=== PATIENT | female | born 1980 | race Caucasian/White ===

== ENCOUNTER 2019-06-07 16:05 | Emergency (ER) | payer MEDICAID ==
[~2019-06-07] VITALS: Ht 157.5 cm; Wt 109.1 kg
[2019-06-07] MEDS ORDERED: IV NORMAL SALINE 1000ML BAG 1,000 ML IV ONE (16:45)
[2019-06-07] MEDS ORDERED: fentaNYL PF VIAL 100 MCG/2 ML VIAL IV ONE (16:45)
--- NOTE | 2019-06-07 16:53 | PHYS DOC ---
Past Medical History Past Medical History: Anxiety, Bipolar, Depression, Fibromyalgia, Pancreatitis Past Surgical History: Cholecystectomy, , Other Additional Past Surgical Histo: UTERINE ABLATION Smoking Status: Never Smoker Alcohol Use: Rarely Adult General Chief Complaint Chief Complaint: RIB PAIN HPI HPI Patient is a 38 year old female who presents with L sided rib pain that started yesterday. The patient states the pain has been hurting when she moves around, however the patient's been taking 2 different muscle relaxants at home and neither is improved her pain. The patient pain is located in the left upper quadrant to left flank of her stomach. It radiates up into the left side of her chest. The patient states that nothing makes it better. The patient states she's also been coughing. Denies fevers. Denies trauma. She does state that she has a history of pancreatitis. Review of Systems Review of Systems Constitutional: Denies fever or chills [] Eyes: Denies change in visual acuity, redness, or eye pain [] HENT: Denies nasal congestion or sore throat [] Respiratory: Reports cough. Cardiovascular: No additional information not addressed in HPI [] GI: Reports L abdominal pain, Denies nausea, vomiting, bloody stools or diarrhea [] : Denies dysuria or hematuria [] Musculoskeletal: Denies back pain or joint pain [] Integument: Denies rash or skin lesions [] Neurologic: Denies headache, focal weakness or sensory changes [] Endocrine: Denies polyuria or polydipsia [] Complete systems were reviewed and found to be within normal limits, except as documented in this note. Current Medications Current Medications Current Medications Medications (Trade) Dose Ordered Sig/Paige Start Time Stop Time Status Last Admin Dose Admin Fentanyl Citrate (Fentanyl 2ml Vial) 50 mcg 1X ONCE 06/07/19 16:45 06/07/19 16:47 DC 06/07/19 17:11 50 MCG Morphine Sulfate (Morphine Sulfate) 5 mg 1X STAT 06/07/19 17:50 06/07/19 17:52 DC 06/07/19 18:00 5 MG Ondansetron HCl (Zofran) 4 mg 1X ONCE 06/07/19 18:00 06/07/19 18:01 DC 06/07/19 18:00 4 MG Sodium Chloride 1,000 ml @ 1,000 mls/hr 1X ONCE 06/07/19 16:45 06/07/19 17:44 DC 06/07/19 17:10 1,000 MLS/HR Allergies Allergies Allergies Coded Allergies Type Severity Reaction Last Updated Verified No Known Drug Allergies 06/07/19 No Physical Exam Physical Exam Constitutional: Well developed, well nourished, no acute distress, non-toxic appearance. [] HENT: Normocephalic, atraumatic, bilateral external ears normal, oropharynx mo ist, no oral exudates, nose normal. [] Eyes: PERRLA, EOMI, conjunctiva normal, no discharge. [] Neck: Normal range of motion, no tenderness, supple, no stridor. [] Cardiovascular:Heart rate regular rhythm, no murmur [] Lungs & Thorax: Bilateral breath sounds diminished bilaterally. Abdomen: Bowel sounds normal, soft, L flank tenderness and LUQ tenderness on palpation, no masses, no pulsatile masses. [] Skin: Warm, dry, no erythema, no rash. [] Back: + L CVA tenderness Extremities: No tenderness, no cyanosis, no clubbing, ROM intact, no edema. [] Neurologic: Alert and oriented X 3, normal motor function, normal sensory function, no focal deficits noted. [] Psychologic: Affect normal, judgement normal, mood normal. [] Current Patient Data Vital Signs Vital Signs Date Time Temp Pulse Resp B/P (MAP) Pulse Ox O2 Delivery O2 Flow Rate FiO2 06/07/19 18:06 82 18 135/72 (93) 97 Room Air 06/07/19 16:30 98.5 98.5 Lab Values Laboratory Tests Test 06/07/19 16:54 06/07/19 16:55 06/07/19 17:05 Urine Collection Type Void Urine Color Yellow Urine Clarity Turbid Urine pH 7.5 Urine Specific [place] 1.020 Urine Protein Negative mg/dL (NEG-TRACE) Urine Glucose (UA) Negative mg/dL (NEG) Urine Ketones (Stick) Negative mg/dL (NEG) Urine Blood Negative (NEG) Urine Nitrite Negative (NEG) Urine Bilirubin Negative (NEG) Urine Urobilinogen Dipstick 0.2 mg/dL (0.2 mg/dL) Urine Leukocyte Esterase Moderate (NEG) Urine RBC 0 /HPF (0-2) Urine WBC 0 /HPF (0-4) Urine Squamous Epithelial Cells Mod /LPF Urine Amorphous Sediment Present /HPF Urine Bacteria Few /HPF (0-FEW) POC Urine HCG, Qualitative Hcg negative (Negative) White Blood Count 10.9 x10^3/uL (4.0-11.0) Red Blood Count 4.54 x10^6/uL (3.50-5.40) Hemoglobin 14.0 g/dL (12.0-15.5) Hematocrit 40.5 % (36.0-47.0) Mean Corpuscular Volume 89 fL (79-100) Mean Corpuscular Hemoglobin 31 pg (25-35) Mean Corpuscular Hemoglobin Concent 35 g/dL (31-37) Red Cell Distribution Width 13.1 % (11.5-14.5) Platelet Count 375 x10^3/uL (140-400) Neutrophils (%) (Auto) 60 % (31-73) Lymphocytes (%) (Auto) 34 % (24-48) Monocytes (%) (Auto) 6 % (0-9) Eosinophils (%) (Auto) 0 % (0-3) Basophils (%) (Auto) 1 % (0-3) Neutrophils # (Auto) 6.5 x10^3/uL (1.8-7.7) Lymphocytes # (Auto) 3.6 x10^3/uL (1.0-4.8) Monocytes # (Auto) 0.6 x10^3/uL (0.0-1.1) Eosinophils # (Auto) 0.0 x10^3/uL (0.0-0.7) Basophils # (Auto) 0.1 x10^3/uL (0.0-0.2) D-Dimer (Brenda) 0.35 ug/mlFEU (0.00-0.50) Sodium Level 142 mmol/L (136-145) Potassium Level 3.5 mmol/L (3.5-5.1) Chloride Level 106 mmol/L (98-107) Carbon Dioxide Level 25 mmol/L (21-32) Anion Gap 11 (6-14) Blood Urea Nitrogen 6 mg/dL (7-20) L Creatinine 0.9 mg/dL (0.6-1.0) Estimated GFR (Cockcroft-Gault) 69.3 BUN/Creatinine Ratio 7 (6-20) Glucose Level 109 mg/dL (70-99) H Calcium Level 9.3 mg/dL (8.5-10.1) Total Bilirubin 0.5 mg/dL (0.2-1.0) Aspartate Amino Transferase (AST) 14 U/L (15-37) L Alanine Aminotransferase (ALT) 20 U/L (14-59) Alkaline Phosphatase 70 U/L (46-116) Troponin I Quantitative < 0.017 ng/mL (0.000-0.055) Total Protein 7.5 g/dL (6.4-8.2) Albumin 3.5 g/dL (3.4-5.0) Albumin/Globulin Ratio 0.9 (1.0-1.7) L Lipase 176 U/L (73-393) Procalcitonin < 0.10 ng/mL (0.00-0.10) Heterophil Agglutinins Negative (NEGATIVE) Laboratory Tests 06/07/19 17:05 Laboratory Tests 06/07/19 17:05 EKG EKG [] Radiology/Procedures Radiology/Procedures [place] [id number] IMAGING REPORT Signed PATIENT: MOHIT COOK: [id number] : 1980 LOCATION: ER AGE: 38 SEX: F EXAM STATUS: REG ER ORD. PHYSICIAN: NICOLAS AUGUSTE APRN REASON: CP, cough PROCEDURE: CHEST PA & LATERAL EXAM: CHEST 2 VIEWS. HISTORY: Chest pain, cough. COMPARISON: None. FINDINGS: Frontal and lateral views of the chest are obtained. There are no confluent infiltrates. There is no pneumothorax or pleural effusion. The heart is not enlarged. IMPRESSION: 1. No confluent infiltrates. Electronically signed by: Mercy Rossi MD (06/07/2019 5:42 PM) [id number] DICTATED and SIGNED BY: AUGUSTA ROSSI MD DATE: 06/07/19 [id number] [place], [place] [id number] IMAGING REPORT Signed PATIENT: MOHIT COOK: [id number] : 1980 LOCATION: ER AGE: 38 SEX: F EXAM STATUS: REG ER ORD. PHYSICIAN: NICOLAS AUGUSTE APRN REASON: CP, cough PROCEDURE: CHEST PA & LATERAL EXAM: CHEST 2 VIEWS. HISTORY: Chest pain, cough. COMPARISON: None. FINDINGS: Frontal and lateral views of the chest are obtained. There are no confluent infiltrates. There is no pneumothorax or pleural effusion. The heart is not enlarged. IMPRESSION: 1. No confluent infiltrates. Electronically signed by: Mercy Rossi MD (06/07/2019 5:42 PM) [id number] DICTATED and SIGNED BY: AUGUSTA ROSSI MD DATE: 06/07/191741 [][facility] [address] [place] [address] IMAGING REPORT Signed PATIENT: MOHIT COOK LACCOUNT: [id number] : 1980 LOCATION: ER AGE: 38 SEX: F EXAM STATUS: REG ER ORD. PHYSICIAN: NICOLAS AUGUSTE APRN REASON: Left sided flank pain PROCEDURE: CT ABDOMEN PELVIS WO CONTRAST CT ABDOMEN PELVIS WO CONTRAST Indication: Left-sided flank pain Exposure: One or more of the following individualized dose reduction techniques were utilized for this examination: 1. Automated exposure control 2. Adjustment of the mA and/or kV according to patient size 3. Use of iterative reconstruction technique. Comparison: None are available. Technique: No intravenous contrast given. No oral contrast per request. Findings: Evaluation of solid viscera, bowel and vasculature is compromised by the noncontrast technique. Lung bases are clear. Liver unremarkable. Spleen unremarkable. Pancreas appears unremarkable. No evidence of adrenal mass. Tiny nonobstructive calculus in the lower pole the right kidney and upper pole left kidney. No hydronephrosis, ureteric dilatation or ureteric calculus. Urinary bladder is nondistended and cannot be evaluated. The uterus demonstrates a slightly large and lobulated morphology, may be due to fibroids. The uterus is anteverted. No evidence of ascites. No evidence of pneumoperitoneum. Small ring density with central fat in the left lower anterior peritoneal fat measures 15 mm, may represent a zone of fibrosis or fat necrosis. No acute changes are seen here, and clinical significance is doubtful.. Vertebral body height and alignment maintained. Mild marginal spurring. Degenerative changes at both hips. Degenerative changes at the sacroiliac joints. IMPRESSION: Tiny nonobstructive renal calculi. No evidence of obstructive uropathy or ureteric calculus. Electronically signed by: Nicolas Jules MD (06/07/2019 5:35 PM) [id number] DICTATED and SIGNED BY: NICOLAS JULES MD DATE: 06/07/19 1735 Course & Med Decision Making Course & Med Decision Making Pertinent Labs and Imaging studies reviewed. (See chart for details) The location of the pain makes it different to distinguish where the pain is coming from. Will get CT abd pelvis wo contrast, Chest x-ray, and get a chest pain work up. Will get labs, and UA. Will give supportive care. It is likely that if the pain was musculoskeletal muscle relaxers should be helping some. Labs are unremarkable. Urine shows leukocytes but patient is asymptomatic. Imaging is unremarkable. Will d/c home to follow up with primary care doctor. Flora Disclaimer Dragon Disclaimer This electronic medical record was generated, in whole or in part, using a voice recognition dictation system. Departure Departure Impression: Primary Impression: LUQ abdominal pain Disposition: HOME, SELF-CARE Condition: STABLE Patient Instructions: Abdominal Pain Additional Instructions: Thank you for visiting [facility]. We appreciate you trusting us with your care. If any additional problems come up don't hesitate to return to visit us. Please follow up with your primary care provider so they can plan additional care if needed and know about the problem that you had. If symptoms worsen come back to the Emergency Department. Any concerning symptoms that start such as chest pain, shortness of air, weakness or numbness on one side of the body, running high fevers or any other concerning symptoms return to the ER. The HEART Score for CP Pts HEART Score for Chest Pain: HEART Score for Chest Pain Response (Comments) Value History Slighlty/Non-Suspicious 0 ECG Normal 0 Age < 45 0 Risk Factors No Risk Factors 0 Troponin < Normal Limit 0 Total 0 Risk Factors: Risk Factors: DM, Current or recent (<one month) smoker, HTN, HLP, family history of CAD, obesity. Risk Scores: Score 0 - 3: 2.5% MACE over next 6 weeks - Discharge Home Score 4 - 6: 20.3% MACE over next 6 weeks - Admit for Clinical Observation Score 7 - 10: 72.7% MACE over next 6 weeks - Early Invasive Strategies NICOLAS AUGUSTE APRN Jun 07, 2019 16:53
[2019-06-07 17:16] LABS: BASO # 0.1 x10^3/uL (0.0-0.2); BASO % 1 % (0-3); EOS % 0 % (0-3); HEMATOCRIT 40.5 % (36.0-47.0); LYMPH # 3.6 x10^3/uL (1.0-4.8); LYMPH % 34 % (24-48); MEAN CORPUSCULAR HEMOGLOBIN 31 pg (25-35); MEAN CORPUSCULAR HGB CONC 35 g/dL (31-37); MEAN CORPUSCULAR VOLUME 89 fL (79-100); MONO # 0.6 x10^3/uL (0.0-1.1); MONO % 6 % (0-9); NEUT # 6.5 x10^3/uL (1.8-7.7); NEUT % 60 % (31-73); PLATELET COUNT 375 x10^3/uL (140-400); RED BLOOD COUNT 4.54 x10^6/uL (3.50-5.40); RED CELL DISTRIBUTION WIDTH 13.1 % (11.5-14.5); WHITE BLOOD COUNT 10.9 x10^3/uL (4.0-11.0)
[2019-06-07 17:30] LABS: CALCIUM 9.3 mg/dL (8.5-10.1); CREATININE 0.9 mg/dL (0.6-1.0); GFR 69.3; POTASSIUM 3.5 mmol/L (3.5-5.1)
[2019-06-07 17:36] LABS: ALBUMIN 3.5 g/dL (3.4-5.0); ALBUMIN/GLOBULIN RATIO 0.9 (1.0-1.7); TOTAL BILIRUBIN 0.5 mg/dL (0.2-1.0); TOTAL PROTEIN 7.5 g/dL (6.4-8.2)
[2019-06-07 17:37] LABS: BILIRUBIN,URINE NEGATIVE (NEG); CLARITY,URINE TURBID; COLOR,URINE YELLOW; NITRITE,URINE NEGATIVE (NEG); PH,URINE 7.5; PROTEIN,URINE NEGATIVE (NEG-TRACE); UROBILINOGEN,URINE 0.2 mg/dL (0.2 mg/dL)
--- NOTE | 2019-06-07 17:38 | RAD ---
CT ABDOMEN PELVIS WO CONTRAST Indication: Left-sided flank pain Exposure: One or more of the following individualized dose reduction techniques were utilized for this examination: 1. Automated exposure control 2. Adjustment of the mA and/or kV according to patient size 3. Use of iterative reconstruction technique. Comparison: None are available. Technique: No intravenous contrast given. No oral contrast per request. Findings: Evaluation of solid viscera, bowel and vasculature is compromised by the noncontrast technique. Lung bases are clear. Liver unremarkable. Spleen unremarkable. Pancreas appears unremarkable. No evidence of adrenal mass. Tiny nonobstructive calculus in the lower pole the right kidney and upper pole left kidney. No hydronephrosis, ureteric dilatation or ureteric calculus. Urinary bladder is nondistended and cannot be evaluated. The uterus demonstrates a slightly large and lobulated morphology, may be due to fibroids. The uterus is anteverted. No evidence of ascites. No evidence of pneumoperitoneum. Small ring density with central fat in the left lower anterior peritoneal fat measures 15 mm, may represent a zone of fibrosis or fat necrosis. No acute changes are seen here, and clinical significance is doubtful.. Vertebral body height and alignment maintained. Mild marginal spurring. Degenerative changes at both hips. Degenerative changes at the sacroiliac joints. IMPRESSION: Tiny nonobstructive renal calculi. No evidence of obstructive uropathy or ureteric calculus. Electronically signed by: Nicolas Jules MD (06/07/2019 5:35 PM) [id number]
[2019-06-07 17:43] LABS: MONONUCLEOSIS PATIENT NEGATIVE (NEGATIVE)
[2019-06-07 17:44] LABS: BACTERIA,URINE FEW /HPF (0-FEW); RBC,URINE 0 /HPF (0-2); WBC,URINE 0 /HPF (0-4)
--- NOTE | 2019-06-07 17:44 | RAD ---
EXAM: CHEST 2 VIEWS. HISTORY: Chest pain, cough. COMPARISON: None. FINDINGS: Frontal and lateral views of the chest are obtained. There are no confluent infiltrates. There is no pneumothorax or pleural effusion. The heart is not enlarged. IMPRESSION: 1. No confluent infiltrates. Electronically signed by: Mercy Rossi MD (06/07/2019 5:42 PM) [id number]
[2019-06-07 17:45] LABS: AMORPHOUS SEDIMENT,UR PRESENT /HPF; SQUAMOUS EPITHELIAL CELL,UR MOD /LPF
[2019-06-07] MEDS ORDERED: MORPHINE SULFATE 10 MG/ML VIAL. IV STA (17:50)
[2019-06-07] MEDS ORDERED: ONDANSETRON PF 4 MG/2 ML VIAL. IV ONE (18:00)
[2019-06-07 18:06] VITALS: BP 135/72
--- NOTE | 2019-06-07 21:33 | EKG ---
[facility] [address] [place] [address] Test Date: 2019-06-07 Test Time: 16:59:26 Pat Name: MOHIT COOK Department: Room: Gender: F Agriculture Worker: : 1980 Requested By: ANJANA AUGUSTE Order Number: [id number] Reading MD: Measurements Intervals [place] Rate: 83 P: 31 HI: 126 QRS: 8 QRSD: 74 T: 31 QT: 354 QTc: 421 Interpretive Statements SINUS RHYTHM NO SPECIFIC ECG ABNORMALITIES RI6.01 No previous ECG available for comparison
== END 2019-06-07 18:23 | disposition home or self-care (01) ==
LOC: ER 16:05
DX: R10.12 Left upper quadrant pain (principal); R07.81 Pleurodynia; F31.9 Bipolar disorder, unspecified; Z90.49 Acquired absence of other specified parts of digestive tract
CPT/HCPCS: 36415; 71046; 74176; 80053; 81001; 81025; 83690; 84145; 84484; 85025; 85379; 86308; 87086; 93005; 96374; 96375; 99285; J2270; J2405; J3010; J7030